=== PATIENT | female | born 1995 | race Caucasian/White ===

== ENCOUNTER 2017-12-11 02:33 | Observation (INO) | payer OTHER ==
[~2017-12-11] VITALS: Ht 170.2 cm; Wt 79.4 kg
[~2017-12-11 02:33] MED LIST: ALBU90OI INH; ALBU90OI6 INH; BENZ100A PO; Bactrim Ds Tab1 EACH PO; CEPH500 PO; CIPR500 PO; Cipro250 MG PO; HYDACE5 PO; IBUP600 PO; IBUP800 PO; LEVFLO500 PO; MIRT15 PO; Monodox100 MG PO; PALI3TAB PO; PROM6.25SY PO; RISP4 PO; SULTRIDS PO; TRAM50 PO; VORTIOXETINE; Zofran Odt4 MG PO
[2017-12-11 02:55] LABS: BASOPHILS ABSOLUTE AUTO 0.03 K/mm3 (0.00-0.23); BASOPHILS PERCENT AUTO 0 % (0-2); EOSINOPHILS ABSOLUTE AUTO 0.05 K/mm3 (0.00-0.68); EOSINOPHILS PERCENT AUTO 0 % (0-6); Hematocrit 44.7 % (33.0-51.0); IMMATURE GRAN ABSOLUTE AUTO 0.04 K/mm3 (0.00-0.10); IMMATURE GRAN PERCENT AUTO 0 % (0-1); LYMPHOCYTES ABSOLUTE AUTO 3.63 K/mm3 (0.84-5.20); LYMPHOCYTES PERCENT AUTO 29 % (21-46); MONOCYTES ABSOLUTE AUTO 1.11 K/mm3 (0.16-1.47); MONOCYTES PERCENT AUTO 9 % (4-13); Mean Corpuscular HGB 30.5 pg (26.0-34.0); Mean Corpuscular HGB Conc 33.6 g/dL (31.5-36.5); Mean Corpuscular Volume 91 fL (80-100); NEUTROPHILS ABSOLUTE AUTO 7.82 K/mm3 (1.96-9.15); NEUTROPHILS PERCENT AUTO 62 % (41-73); Platelet Count 373 K/mm3 (150-400); RDW Coefficient Variation 12.6 % (11.7-14.2); RDW Standard Deviation 42.3 fL (35.1-46.3); Red Blood Cell Count 4.91 M/mm3 (3.80-5.20); White Blood Cell Count 12.68 K/mm3 (4.00-11.30)
[2017-12-11 03:14] LABS: Source, Urine Clean Catch
[2017-12-11 03:16] LABS: Bilirubin, Urine Neg (Neg); Blood, Urine Neg (Neg); Glucose Qualitative, Urine Neg (Neg); Ketones, Urine 2+ (Neg); Leukocyte Esterase, Urine 1+ (Neg); Nitrite, Urine Neg (Neg); Protein, Urine 1+ (Neg); Urobilinogen, Urine 1+ (Normal)
[2017-12-11 03:17] LABS: Appearance, Urine Clear (Clear); Color, Urine Yellow (P-Yellow)
[2017-12-11 03:18] LABS: Ethanol (Alcohol), Blood, Med <3 mg/dL
[2017-12-11 03:21] LABS: Acetaminophen, Random <2.0 ug/mL (10.0-30.0); Alanine Aminotransfer (ALT/SGP 20 U/L (12-78); Albumin, Blood 4.3 g/dL (3.4-5.0); Albumin/Globulin Ratio 0.9 (0.8-1.8); Alk Phos 86 U/L (50-136); Anion Gap 12 mmol/L (6-16); Aspartate Aminotrans (AST/SGOT 19 U/L (12-37); Bilirubin, Total 0.3 mg/dL (0.1-1.0); Blood Urea Nitrogen 13 mg/dL (8-24); Bun/Creatinine Ratio 18.1 (12.0-20.0); CO2, Blood 20 mmol/L (21-32); Calcium, Blood 9.4 mg/dL (8.5-10.1); Chloride, Blood 105 mmol/L (98-108); Creatinine, Blood 0.72 mg/dL (0.40-1.00); Globulin, Blood 4.9 g/dL (2.2-4.0); Glomerular Filtration Rate >60 (60-); Glucose, Blood 114 mg/dL (70-99); Potassium, Blood 4.4 mmol/L (3.5-5.5); Sodium, Blood 137 mmol/L (136-145); Total Protein, Blood 9.2 g/dL (6.4-8.2)
[2017-12-11 03:23] LABS: Bacteria Mod /hpf; Hyaline Casts 0-2 /lpf (0-2); Mucus Light (0-Heavy); Red Blood Cells, Urine 0-2 /hpf (0-2); Squamous Epithelial Cells Few /hpf (Few)
[2017-12-11 03:33] LABS: U Amphetamine Screen DETECTED; U Barbituate Screen Not Detected; U Benzodiazapine Screen Not Detected; U Buprenorphine Screen Not Detected; U Cannabinoids Screen DETECTED; U Cocaine Screen Not Detected; U Methadone Screen Not Detected; U Methamphetamine Screen DETECTED; U Opiates Screen Not Detected; U Oxycodone Screen Not Detected; U Phencyclidine Screen Not Detected; U Propoxyphene Screen Not Detected
== END 2017-12-11 13:52 | disposition home or self-care (01) ==
LOC: ER 02:33 → EOR 02:35
PROVIDERS: Emergency Medicine
DX: F15.959 Other stimulant use, unspecified with stimulant-induced psychotic disorder, unspecified (principal); I10 Essential (primary) hypertension; F20.9 Schizophrenia, unspecified; F31.9 Bipolar disorder, unspecified; F90.9 Attention-deficit hyperactivity disorder, unspecified type; F43.10 Post-traumatic stress disorder, unspecified; F17.210 Nicotine dependence, cigarettes, uncomplicated; Z88.8 Allergy status to other drugs, medicaments and biological substances; Z98.890 Other specified postprocedural states
CPT/HCPCS: 36415; 80053; 81001; 81025; 84443; 85025; 87086; 96374; 96375; 99285; G0378; G0480; J1630; J2060; P9612

== ENCOUNTER 2017-12-23 04:12 | Observation (INO) | payer OTHER ==
[~2017-12-23] VITALS: Ht 165.1 cm; Wt 74.8 kg
[2017-12-23 04:40] LABS: BASOPHILS ABSOLUTE AUTO 0.02 K/mm3 (0.00-0.23); BASOPHILS PERCENT AUTO 0 % (0-2); EOSINOPHILS ABSOLUTE AUTO 0.05 K/mm3 (0.00-0.68); EOSINOPHILS PERCENT AUTO 1 % (0-6); Hematocrit 42.2 % (33.0-51.0); Hemoglobin 14.2 g/dL (11.5-16.0); IMMATURE GRAN ABSOLUTE AUTO 0.02 K/mm3 (0.00-0.10); IMMATURE GRAN PERCENT AUTO 0 % (0-1); LYMPHOCYTES ABSOLUTE AUTO 2.39 K/mm3 (0.84-5.20); LYMPHOCYTES PERCENT AUTO 28 % (21-46); MONOCYTES ABSOLUTE AUTO 0.58 K/mm3 (0.16-1.47); MONOCYTES PERCENT AUTO 7 % (4-13); Mean Corpuscular HGB 30.5 pg (26.0-34.0); Mean Corpuscular HGB Conc 33.6 g/dL (31.5-36.5); Mean Corpuscular Volume 91 fL (80-100); Mean Platelet Volume 8.8 fL (9.1-12.4); NEUTROPHILS ABSOLUTE AUTO 5.38 K/mm3 (1.96-9.15); NEUTROPHILS PERCENT AUTO 64 % (41-73); Platelet Count 377 K/mm3 (150-400); RDW Coefficient Variation 12.6 % (11.7-14.2); RDW Standard Deviation 41.5 fL (35.1-46.3); Red Blood Cell Count 4.65 M/mm3 (3.80-5.20); White Blood Cell Count 8.44 K/mm3 (4.00-11.30)
[2017-12-23 05:00] LABS: Source, Urine Clean Catch
[2017-12-23 05:05] LABS: Alanine Aminotransfer (ALT/SGP 19 U/L (12-78); Albumin/Globulin Ratio 0.8 (0.8-1.8); Alk Phos 93 U/L (50-136); Anion Gap 10 mmol/L (6-16); Aspartate Aminotrans (AST/SGOT 20 U/L (12-37); Bilirubin, Total 0.5 mg/dL (0.1-1.0); Blood Urea Nitrogen 7 mg/dL (8-24); Bun/Creatinine Ratio 11.2 (12.0-20.0); CO2, Blood 23 mmol/L (21-32); Calcium, Blood 9.1 mg/dL (8.5-10.1); Chloride, Blood 104 mmol/L (98-108); Creatinine, Blood 0.63 mg/dL (0.40-1.00); Ethanol (Alcohol), Blood, Med <3 mg/dL; Globulin, Blood 4.8 g/dL (2.2-4.0); Glomerular Filtration Rate >60 (60-); Glucose, Blood 97 mg/dL (70-99); Potassium, Blood 3.5 mmol/L (3.5-5.5); Salicylate <1.7 mg/dL (2.8-20.0); Sodium, Blood 137 mmol/L (136-145); Total Protein, Blood 8.8 g/dL (6.4-8.2)
[2017-12-23 05:13] LABS: Appearance, Urine Hazy (Clear); Bilirubin, Urine Neg (Neg); Blood, Urine 1+ (Neg); Color, Urine Yellow (P-Yellow); Glucose Qualitative, Urine Neg (Neg); Ketones, Urine 2+ (Neg); Leukocyte Esterase, Urine 3+ (Neg); Nitrite, Urine Neg (Neg); Protein, Urine Neg (Neg); Specific Gravity, Urine 1.015 (1.003-1.022); Urobilinogen, Urine NORM (Normal); pH, Urine 6.5 (5.0-8.0)
[2017-12-23 05:15] LABS: Acetaminophen, Random <2.0 ug/mL (10.0-30.0)
[2017-12-23 05:15] LABS: Bacteria Rare /hpf; Red Blood Cells, Urine 0-2 /hpf (0-2); Squamous Epithelial Cells Mod /hpf (Few)
[2017-12-23 05:20] LABS: U Amphetamine Screen DETECTED; U Barbituate Screen Not Detected; U Benzodiazapine Screen Not Detected; U Buprenorphine Screen Not Detected; U Cannabinoids Screen DETECTED; U Cocaine Screen Not Detected; U Methadone Screen Not Detected; U Methamphetamine Screen DETECTED; U Opiates Screen Not Detected; U Oxycodone Screen Not Detected; U Phencyclidine Screen Not Detected; U Propoxyphene Screen Not Detected
== END 2017-12-26 13:15 | disposition home or self-care (01) ==
LOC: ER 04:12 → EOR 04:13
PROVIDERS: Emergency Medicine
DX: F15.129 Other stimulant abuse with intoxication, unspecified (principal); R45.851 Suicidal ideations; R45.850 Homicidal ideations; F19.11 Other psychoactive substance abuse, in remission; F31.9 Bipolar disorder, unspecified; F11.10 Opioid abuse, uncomplicated; I10 Essential (primary) hypertension; F43.10 Post-traumatic stress disorder, unspecified; F20.9 Schizophrenia, unspecified; F90.9 Attention-deficit hyperactivity disorder, unspecified type; F17.210 Nicotine dependence, cigarettes, uncomplicated; Z88.8 Allergy status to other drugs, medicaments and biological substances; Z98.890 Other specified postprocedural states
CPT/HCPCS: 51701; 80053; 81001; 81025; 84443; 85025; 87086; 96372; 99285; G0378; G0480; J1630; J2060; Q3014

== ENCOUNTER → 2018-01-24 | Outpatient (CLI) | payer OTHER ==
[2018-01-24 15:25] LABS: U Amphetamine Screen DETECTED; U Barbituate Screen Not Detected; U Benzodiazapine Screen Not Detected; U Cocaine Screen Not Detected; U Methamphetamine Screen DETECTED
[2018-01-24 15:26] LABS: U Buprenorphine Screen Not Detected; U Cannabinoids Screen Not Detected; U Methadone Screen Not Detected; U Opiates Screen Not Detected; U Oxycodone Screen Not Detected; U Phencyclidine Screen Not Detected; U Propoxyphene Screen Not Detected
== END ==
LOC: LAB SHORT 13:30 → LAB 13:30
PROVIDERS: Registered Nurse
DX: Z51.81 Encounter for therapeutic drug level monitoring (principal); Z79.899 Other long term (current) drug therapy

== ENCOUNTER 2018-02-02 04:50 | Emergency (ER) | payer OTHER | END 2018-02-02 05:02 | disposition left against medical advice (07) | LOC: ER 04:50 | DX: Z53.21 Procedure and treatment not carried out due to patient leaving prior to being seen by health care provider (principal) ==

== ENCOUNTER 2018-04-17 18:14 | Emergency (ER) | payer OTHER ==
[~2018-04-17] VITALS: Ht 170.2 cm; Wt 79.4 kg
[2018-04-17] MEDS ORDERED: RISP4 PO (19:41)
== END 2018-04-17 19:55 | disposition home or self-care (01) ==
LOC: ER 18:14
DX: Z76.0 Encounter for issue of repeat prescription (principal); Z88.8 Allergy status to other drugs, medicaments and biological substances; Z79.899 Other long term (current) drug therapy; F20.9 Schizophrenia, unspecified; F31.9 Bipolar disorder, unspecified; F90.9 Attention-deficit hyperactivity disorder, unspecified type; I10 Essential (primary) hypertension; F17.210 Nicotine dependence, cigarettes, uncomplicated
CPT/HCPCS: 99281

== ENCOUNTER 2018-05-08 01:56 | Observation (INO) | payer OTHER ==
[~2018-05-08] VITALS: Ht 170.2 cm; Wt 90.7 kg
== END 2018-05-09 08:55 | disposition home or self-care (01) ==
LOC: ER 01:56 → EOR 01:57
DX: F19.10 Other psychoactive substance abuse, uncomplicated (principal); F41.9 Anxiety disorder, unspecified; F20.9 Schizophrenia, unspecified; F31.9 Bipolar disorder, unspecified; F90.9 Attention-deficit hyperactivity disorder, unspecified type; I10 Essential (primary) hypertension; F43.10 Post-traumatic stress disorder, unspecified; Z88.8 Allergy status to other drugs, medicaments and biological substances; Z79.899 Other long term (current) drug therapy
CPT/HCPCS: 99285; G0378

== ENCOUNTER 2018-05-13 18:26 | Observation (INO) | payer OTHER ==
[~2018-05-13] VITALS: Ht 167.6 cm; Wt 86.2 kg
[2018-05-13 19:30] LABS: BASOPHILS ABSOLUTE AUTO 0.03 K/mm3 (0.00-0.23); BASOPHILS PERCENT AUTO 0 % (0-2); EOSINOPHILS ABSOLUTE AUTO 0.05 K/mm3 (0.00-0.68); EOSINOPHILS PERCENT AUTO 0 % (0-6); Hematocrit 38.2 % (33.0-51.0); Hemoglobin 12.7 g/dL (11.5-16.0); IMMATURE GRAN ABSOLUTE AUTO 0.05 K/mm3 (0.00-0.10); IMMATURE GRAN PERCENT AUTO 0 % (0-1); LYMPHOCYTES ABSOLUTE AUTO 2.73 K/mm3 (0.84-5.20); LYMPHOCYTES PERCENT AUTO 23 % (21-46); MONOCYTES ABSOLUTE AUTO 1.44 K/mm3 (0.16-1.47); MONOCYTES PERCENT AUTO 12 % (4-13); Mean Corpuscular HGB 30.5 pg (26.0-34.0); Mean Corpuscular HGB Conc 33.2 g/dL (31.5-36.5); Mean Corpuscular Volume 92 fL (80-100); NEUTROPHILS PERCENT AUTO 64 % (41-73); Platelet Count 399 K/mm3 (150-400); RDW Coefficient Variation 14.6 % (11.7-14.2); RDW Standard Deviation 49.5 fL (35.1-46.3); Red Blood Cell Count 4.17 M/mm3 (3.80-5.20)
[2018-05-13 19:54] LABS: Ethanol (Alcohol), Blood, Med <3 mg/dL; Salicylate 2.5 mg/dL (2.8-20.0)
[2018-05-13 19:59] LABS: Alanine Aminotransfer (ALT/SGP 69 U/L (12-78); Albumin, Blood 4.3 g/dL (3.4-5.0); Alk Phos 95 U/L (50-136); Anion Gap 16 mmol/L (6-16); Aspartate Aminotrans (AST/SGOT 50 U/L (12-37); Bilirubin, Total 0.7 mg/dL (0.1-1.0); Blood Urea Nitrogen 18 mg/dL (8-24); Bun/Creatinine Ratio 22.7 (12.0-20.0); CO2, Blood 20 mmol/L (21-32); Calcium, Blood 8.9 mg/dL (8.5-10.1); Chloride, Blood 102 mmol/L (98-108); Creatinine, Blood 0.79 mg/dL (0.40-1.00); Globulin, Blood 4.3 g/dL (2.2-4.0); Glomerular Filtration Rate >60 (60-); Glucose, Blood 105 mg/dL (70-99); Potassium, Blood 3.1 mmol/L (3.5-5.5); Sodium, Blood 138 mmol/L (136-145); Total Protein, Blood 8.6 g/dL (6.4-8.2)
[2018-05-13 20:03] LABS: Acetaminophen, Random <2.0 ug/mL (10.0-30.0)
[2018-05-14 04:21] LABS: Source, Urine Clean Catch
[2018-05-14 04:23] LABS: Appearance, Urine Cloudy (Clear); Bilirubin, Urine Neg (Neg); Blood, Urine 1+ (Neg); Color, Urine Amber (P-Yellow); Glucose Qualitative, Urine Neg (Neg); Ketones, Urine 1+ (Neg); Leukocyte Esterase, Urine 2+ (Neg); Nitrite, Urine Neg (Neg); Protein, Urine 1+ (Neg); Specific Gravity, Urine 1.025 (1.003-1.022); Urobilinogen, Urine NORM (Normal)
[2018-05-14 04:32] LABS: Amorphous Light (0-Heavy); Bacteria Many /hpf; Mucus Light (0-Heavy); Red Blood Cells, Urine 0-2 /hpf (0-2); Squamous Epithelial Cells Many /hpf (Few)
[2018-05-14 04:33] LABS: U Amphetamine Screen DETECTED; U Barbituate Screen Not Detected; U Benzodiazapine Screen Not Detected; U Buprenorphine Screen Not Detected; U Cannabinoids Screen DETECTED; U Cocaine Screen Not Detected; U Methadone Screen Not Detected; U Methamphetamine Screen DETECTED; U Opiates Screen Not Detected; U Oxycodone Screen Not Detected; U Phencyclidine Screen Not Detected; U Propoxyphene Screen Not Detected
== END 2018-05-14 14:45 | disposition home or self-care (01) ==
LOC: ER 18:26 → EOR 18:27
PROVIDERS: Emergency Medicine
DX: F20.9 Schizophrenia, unspecified (principal); F19.10 Other psychoactive substance abuse, uncomplicated; F31.9 Bipolar disorder, unspecified; I10 Essential (primary) hypertension; F43.10 Post-traumatic stress disorder, unspecified; F90.9 Attention-deficit hyperactivity disorder, unspecified type; Z79.899 Other long term (current) drug therapy
CPT/HCPCS: 36415; 80053; 81001; 81025; 84439; 84443; 85025; 87086; 99285; G0378; G0480

== ENCOUNTER 2018-07-21 16:24 | Observation (INO) | payer OTHER ==
[~2018-07-21] VITALS: Ht 167.6 cm; Wt 86.2 kg
[2018-07-21 18:48] LABS: BASOPHILS ABSOLUTE AUTO 0.02 K/mm3 (0.00-0.23); BASOPHILS PERCENT AUTO 0 % (0-2); EOSINOPHILS ABSOLUTE AUTO 0.03 K/mm3 (0.00-0.68); EOSINOPHILS PERCENT AUTO 0 % (0-6); Hemoglobin 12.3 g/dL (11.5-16.0); IMMATURE GRAN ABSOLUTE AUTO 0.02 K/mm3 (0.00-0.10); IMMATURE GRAN PERCENT AUTO 0 % (0-1); LYMPHOCYTES ABSOLUTE AUTO 1.97 K/mm3 (0.84-5.20); LYMPHOCYTES PERCENT AUTO 25 % (21-46); MONOCYTES ABSOLUTE AUTO 0.73 K/mm3 (0.16-1.47); MONOCYTES PERCENT AUTO 9 % (4-13); Mean Corpuscular HGB 30.4 pg (26.0-34.0); Mean Corpuscular HGB Conc 32.4 g/dL (31.5-36.5); Mean Corpuscular Volume 94 fL (80-100); Mean Platelet Volume 9.3 fL (9.1-12.4); NEUTROPHILS ABSOLUTE AUTO 5.17 K/mm3 (1.96-9.15); NEUTROPHILS PERCENT AUTO 65 % (41-73); Platelet Count 316 K/mm3 (150-400); RDW Coefficient Variation 13.1 % (11.7-14.2); RDW Standard Deviation 45.1 fL (35.1-46.3); Red Blood Cell Count 4.04 M/mm3 (3.80-5.20); White Blood Cell Count 7.94 K/mm3 (4.00-11.30)
[2018-07-21 19:10] LABS: Alanine Aminotransfer (ALT/SGP 20 U/L (12-78); Albumin, Blood 3.7 g/dL (3.4-5.0); Alk Phos 81 U/L (50-136); Anion Gap 9 mmol/L (6-16); Aspartate Aminotrans (AST/SGOT 21 U/L (12-37); Bilirubin, Total 0.4 mg/dL (0.1-1.0); Blood Urea Nitrogen 11 mg/dL (8-24); Bun/Creatinine Ratio 14.5 (12.0-20.0); CO2, Blood 21 mmol/L (21-32); Calcium, Blood 8.6 mg/dL (8.5-10.1); Chloride, Blood 113 mmol/L (98-108); Creatinine, Blood 0.76 mg/dL (0.40-1.00); Ethanol (Alcohol), Blood, Med <3 mg/dL; Globulin, Blood 3.8 g/dL (2.2-4.0); Glomerular Filtration Rate >60 (60-); Glucose, Blood 81 mg/dL (70-99); Potassium, Blood 3.5 mmol/L (3.5-5.5); Salicylate <1.7 mg/dL (2.8-20.0); Sodium, Blood 143 mmol/L (136-145); Total Protein, Blood 7.5 g/dL (6.4-8.2)
[2018-07-21 19:18] LABS: Acetaminophen, Random <2.0 ug/mL (10.0-30.0)
== END 2018-07-24 10:30 | disposition home or self-care (01) ==
LOC: ER 16:24 → EOR 16:25
PROVIDERS: Emergency Medicine
DX: R45.851 Suicidal ideations (principal); F20.9 Schizophrenia, unspecified; F31.9 Bipolar disorder, unspecified; F90.9 Attention-deficit hyperactivity disorder, unspecified type; F17.210 Nicotine dependence, cigarettes, uncomplicated; Z88.8 Allergy status to other drugs, medicaments and biological substances; Z79.899 Other long term (current) drug therapy
CPT/HCPCS: 80053; 84443; 85025; 96372; 99285; G0378; G0480; J0515; J1630; J2060; Q3014

== ENCOUNTER 2018-11-29 16:04 | Observation (INO) | payer OTHER ==
[~2018-11-29] VITALS: Ht 167.6 cm; Wt 68.0 kg
[2018-11-29 17:01] LABS: BASOPHILS ABSOLUTE AUTO 0.03 K/mm3 (0.00-0.23); BASOPHILS PERCENT AUTO 0 % (0-2); EOSINOPHILS PERCENT AUTO 0 % (0-6); Hematocrit 40.3 % (33.0-51.0); Hemoglobin 13.6 g/dL (11.5-16.0); IMMATURE GRAN ABSOLUTE AUTO 0.04 K/mm3 (0.00-0.10); IMMATURE GRAN PERCENT AUTO 0 % (0-1); LYMPHOCYTES ABSOLUTE AUTO 2.32 K/mm3 (0.84-5.20); LYMPHOCYTES PERCENT AUTO 16 % (21-46); MONOCYTES ABSOLUTE AUTO 1.42 K/mm3 (0.16-1.47); MONOCYTES PERCENT AUTO 10 % (4-13); Mean Corpuscular HGB 31.9 pg (26.0-34.0); Mean Corpuscular HGB Conc 33.7 g/dL (31.5-36.5); Mean Corpuscular Volume 94 fL (80-100); Mean Platelet Volume 9.3 fL (9.1-12.4); NEUTROPHILS ABSOLUTE AUTO 11.04 K/mm3 (1.96-9.15); NEUTROPHILS PERCENT AUTO 74 % (41-73); Platelet Count 372 K/mm3 (150-400); RDW Coefficient Variation 12.3 % (11.7-14.2); RDW Standard Deviation 43.1 fL (35.1-46.3); Red Blood Cell Count 4.27 M/mm3 (3.80-5.20); White Blood Cell Count 14.85 K/mm3 (4.00-11.30)
[2018-11-29 17:25] LABS: Alanine Aminotransfer (ALT/SGP 37 U/L (12-78); Albumin, Blood 4.3 g/dL (3.4-5.0); Alk Phos 88 U/L (50-136); Anion Gap 10 mmol/L (6-16); Aspartate Aminotrans (AST/SGOT 36 U/L (12-37); Bilirubin, Total 0.7 mg/dL (0.1-1.0); Blood Urea Nitrogen 21 mg/dL (8-24); Bun/Creatinine Ratio 24.8 (12.0-20.0); CO2, Blood 22 mmol/L (21-32); Calcium, Blood 8.8 mg/dL (8.5-10.1); Chloride, Blood 106 mmol/L (98-108); Creatinine, Blood 0.85 mg/dL (0.40-1.00); Globulin, Blood 4.1 g/dL (2.2-4.0); Glomerular Filtration Rate >60 (60-); Glucose, Blood 93 mg/dL (70-99); Potassium, Blood 3.6 mmol/L (3.5-5.5); Salicylate <1.7 mg/dL (2.8-20.0); Sodium, Blood 138 mmol/L (136-145); Total Protein, Blood 8.4 g/dL (6.4-8.2)
[2018-11-29 17:31] LABS: Acetaminophen, Random <2.0 ug/mL (10.0-30.0); Ethanol (Alcohol), Blood, Med <3 mg/dL
[2018-11-29 21:39] LABS: Source, Urine Clean Catch
[2018-11-29 21:46] LABS: Bilirubin, Urine Neg (Neg); Blood, Urine 1+ (Neg); Glucose Qualitative, Urine Neg (Neg); Ketones, Urine 4+ (Neg); Leukocyte Esterase, Urine 3+ (Neg); Nitrite, Urine Neg (Neg); Protein, Urine 2+ (Neg); Specific Gravity, Urine 1.025 (1.003-1.022); Urobilinogen, Urine 1+ (Normal)
[2018-11-29 21:47] LABS: Appearance, Urine Hazy (Clear); Color, Urine Amber (P-Yellow)
[2018-11-29 22:00] LABS: U Amphetamine Screen DETECTED; U Barbituate Screen Not Detected; U Benzodiazapine Screen Not Detected; U Buprenorphine Screen Not Detected; U Cannabinoids Screen DETECTED; U Cocaine Screen Not Detected; U Methadone Screen Not Detected; U Methamphetamine Screen DETECTED; U Opiates Screen Not Detected; U Oxycodone Screen Not Detected; U Phencyclidine Screen Not Detected; U Propoxyphene Screen Not Detected
[2018-11-29 22:01] LABS: Amorphous Light (0-Heavy); Bacteria Many /hpf; Mucus Heavy (0-Heavy); Red Blood Cells, Urine 0-2 /hpf (0-2); Squamous Epithelial Cells Many /hpf (Few); White Blood Cells, Urine 25-50 /hpf (0-5)
== END 2018-11-29 22:34 | disposition home or self-care (01) ==
LOC: ER 16:04 → EOR 16:05
PROVIDERS: Physician Assistant; ADMIT Emergency Medicine
DX: R45.851 Suicidal ideations (principal); F15.129 Other stimulant abuse with intoxication, unspecified; F12.929 Cannabis use, unspecified with intoxication, unspecified; F20.9 Schizophrenia, unspecified; F31.9 Bipolar disorder, unspecified; F90.9 Attention-deficit hyperactivity disorder, unspecified type; F17.200 Nicotine dependence, unspecified, uncomplicated; Z88.8 Allergy status to other drugs, medicaments and biological substances; Z79.899 Other long term (current) drug therapy
CPT/HCPCS: 80053; 81001; 81025; 84436; 84443; 85025; 87086; 99285; G0378; G0480

== ENCOUNTER 2019-01-17 14:38 | Emergency (ER) | payer SELFPAY ==
[~2019-01-17] VITALS: Ht 170.2 cm; Wt 90.7 kg
[2019-01-17 15:21] LABS: BASOPHILS ABSOLUTE AUTO 0.03 K/mm3 (0.00-0.23); BASOPHILS PERCENT AUTO 0 % (0-2); EOSINOPHILS ABSOLUTE AUTO 0.03 K/mm3 (0.00-0.68); EOSINOPHILS PERCENT AUTO 0 % (0-6); Hematocrit 35.7 % (33.0-51.0); Hemoglobin 11.9 g/dL (11.5-16.0); IMMATURE GRAN ABSOLUTE AUTO 0.03 K/mm3 (0.00-0.10); IMMATURE GRAN PERCENT AUTO 0 % (0-1); LYMPHOCYTES ABSOLUTE AUTO 2.69 K/mm3 (0.84-5.20); LYMPHOCYTES PERCENT AUTO 25 % (21-46); MONOCYTES ABSOLUTE AUTO 1.17 K/mm3 (0.16-1.47); MONOCYTES PERCENT AUTO 11 % (4-13); Mean Corpuscular HGB 30.9 pg (26.0-34.0); Mean Corpuscular HGB Conc 33.3 g/dL (31.5-36.5); Mean Corpuscular Volume 93 fL (80-100); Mean Platelet Volume 9.2 fL (9.1-12.4); NEUTROPHILS ABSOLUTE AUTO 6.96 K/mm3 (1.96-9.15); NEUTROPHILS PERCENT AUTO 64 % (41-73); Platelet Count 316 K/mm3 (150-400); RDW Coefficient Variation 12.7 % (11.7-14.2); RDW Standard Deviation 43.1 fL (35.1-46.3); Red Blood Cell Count 3.85 M/mm3 (3.80-5.20); White Blood Cell Count 10.91 K/mm3 (4.00-11.30)
[2019-01-17 15:56] LABS: Alanine Aminotransfer (ALT/SGP 15 U/L (12-78); Albumin/Globulin Ratio 0.6 (0.8-1.8); Alk Phos 67 U/L (50-136); Anion Gap 9 mmol/L (6-16); Aspartate Aminotrans (AST/SGOT 25 U/L (12-37); Bilirubin, Total 0.3 mg/dL (0.1-1.0); Blood Urea Nitrogen 6 mg/dL (8-24); Bun/Creatinine Ratio 10.4 (12.0-20.0); CO2, Blood 23 mmol/L (21-32); Calcium, Blood 8.4 mg/dL (8.5-10.1); Chloride, Blood 104 mmol/L (98-108); Creatinine, Blood 0.58 mg/dL (0.40-1.00); Globulin, Blood 4.7 g/dL (2.2-4.0); Glomerular Filtration Rate >60 (60-); Glucose, Blood 98 mg/dL (70-99); Potassium, Blood 3.7 mmol/L (3.5-5.5); Sodium, Blood 136 mmol/L (136-145); Total Protein, Blood 7.7 g/dL (6.4-8.2)
== END 2019-01-17 16:22 | disposition left against medical advice (07) ==
LOC: ER 14:38
PROVIDERS: Physician Assistant
DX: Z53.21 Procedure and treatment not carried out due to patient leaving prior to being seen by health care provider (principal)
CPT/HCPCS: 80053; 83690; 85025

== ENCOUNTER 2019-03-13 02:34 | Inpatient (IN) | payer MEDICARE ==
[~2019-03-13] VITALS: Ht 167.6 cm; Wt 69.3 kg
[~2019-03-13 02:34] MED LIST changes: +Naprosyn500 MG PO; +PALI6TA PO; +ROBITUSSIN COU237 ML PO
[2019-03-13 03:03] LABS: PCO2 Arterial 27.9 mmHg (35-45); PO2 Arterial 221 mmHg (80-100); pH Blood Arterial 7.53 (7.35-7.45)
[2019-03-13 03:03] LABS: Source, Urine Catheter
[2019-03-13 03:06] LABS: Bilirubin, Urine Neg (Neg); Blood, Urine Neg (Neg); Glucose Qualitative, Urine Neg (Neg); Ketones, Urine 2+ (Neg); Leukocyte Esterase, Urine 1+ (Neg); Nitrite, Urine Neg (Neg); Protein, Urine 1+ (Neg); Urobilinogen, Urine NORM (Normal)
[2019-03-13 03:06] LABS: BASOPHILS ABSOLUTE AUTO 0.03 K/mm3 (0.00-0.23); BASOPHILS PERCENT AUTO 0 % (0-2); EOSINOPHILS ABSOLUTE AUTO 0.03 K/mm3 (0.00-0.68); EOSINOPHILS PERCENT AUTO 0 % (0-6); Hematocrit 35.8 % (33.0-51.0); Hemoglobin 11.5 g/dL (11.5-16.0); IMMATURE GRAN ABSOLUTE AUTO 0.05 K/mm3 (0.00-0.10); IMMATURE GRAN PERCENT AUTO 0 % (0-1); LYMPHOCYTES ABSOLUTE AUTO 4.18 K/mm3 (0.84-5.20); LYMPHOCYTES PERCENT AUTO 26 % (21-46); MONOCYTES ABSOLUTE AUTO 1.07 K/mm3 (0.16-1.47); MONOCYTES PERCENT AUTO 7 % (4-13); Mean Corpuscular HGB 29.7 pg (26.0-34.0); Mean Corpuscular HGB Conc 32.1 g/dL (31.5-36.5); Mean Corpuscular Volume 93 fL (80-100); NEUTROPHILS ABSOLUTE AUTO 10.58 K/mm3 (1.96-9.15); NEUTROPHILS PERCENT AUTO 66 % (41-73); Platelet Count 387 K/mm3 (150-400); RDW Coefficient Variation 13.8 % (11.7-14.2); Red Blood Cell Count 3.87 M/mm3 (3.80-5.20); White Blood Cell Count 15.94 K/mm3 (4.00-11.30)
[2019-03-13 03:08] LABS: Appearance, Urine Clear (Clear); Color, Urine Yellow (P-Yellow)
[2019-03-13 03:11] LABS: Bacteria Mod /hpf; Mucus Light (0-Heavy); Red Blood Cells, Urine 0-2 /hpf (0-2); Squamous Epithelial Cells Few /hpf (Few)
[2019-03-13 03:17] LABS: U Amphetamine Screen DETECTED; U Barbituate Screen Not Detected; U Benzodiazapine Screen Not Detected; U Buprenorphine Screen Not Detected; U Cannabinoids Screen DETECTED; U Cocaine Screen Not Detected; U Methadone Screen Not Detected; U Methamphetamine Screen DETECTED; U Opiates Screen Not Detected; U Oxycodone Screen Not Detected; U Phencyclidine Screen Not Detected; U Propoxyphene Screen Not Detected
[2019-03-13 03:29] LABS: Alanine Aminotransfer (ALT/SGP 26 U/L (12-78); Albumin, Blood 3.2 g/dL (3.4-5.0); Albumin/Globulin Ratio 0.7 (0.8-1.8); Alk Phos 74 U/L (50-136); Anion Gap 11 mmol/L (6-16); Aspartate Aminotrans (AST/SGOT 31 U/L (12-37); Bilirubin, Total 0.5 mg/dL (0.1-1.0); Blood Urea Nitrogen 14 mg/dL (8-24); Bun/Creatinine Ratio 18.2 (12.0-20.0); CO2, Blood 24 mmol/L (21-32); CPK Creatine Kinase 384 U/L (26-193); Calcium, Blood 8.2 mg/dL (8.5-10.1); Chloride, Blood 104 mmol/L (98-108); Creatinine, Blood 0.77 mg/dL (0.40-1.00); Ethanol (Alcohol), Blood, Med <3 mg/dL; Globulin, Blood 4.3 g/dL (2.2-4.0); Glomerular Filtration Rate >60 (60-); Glucose, Blood 96 mg/dL (70-99); Salicylate <1.7 mg/dL (2.8-20.0); Sodium, Blood 139 mmol/L (136-145); Total Protein, Blood 7.5 g/dL (6.4-8.2)
[2019-03-13 03:38] LABS: Acetaminophen, Random <2.0 ug/mL (10.0-30.0)
[2019-03-13 03:53] LABS: Creatine Kinase MB 5.1 ng/mL (0.0-3.6); Creatine Kinase MB Index 1.3 (0.0-4.0)
--- NOTE | 2019-03-13 06:40 | NUR ---
ASSUMED PT CARE / END OF SHIFT SUMMARY ASSUMED PT CARE AT 0518. PT ARRIVED ON UNIT VIA STRETCHER FROM ED. PT INTUBATED AND SEDATED; ETT 7.5, 23CM AT THE TEETH. VENT SETTINGS: AC 14, TV 400, PEEP 5, FIO2 25% WITH OXYGEN SATURATIONS 99%. PROPOFOL AT 40MCG/KG/MIN; INCREASED TO 50MCG/KG/MIN RIGHT AWAY AND ASKED REGISTRY RN TO CALL AND ASK FOR ORDERS FOR PRECEDEX D/T PT THRASHING IN BED AND INCREASING RISK OF SELF EXTUBATION. NO FAMILY AT BEDSIDE. PT RESPONDS TO PAINFUL STIMULI AND ATTEMPTS PURPOSEFUL MOVEMENTS. PT REMAINS IN BILATERAL SOFT WRIST RESTRAINTS. NSR WITH HR 90'S. PRECEDEX STARTED AT 0.7MCG/KG/HR. LUNG SOUNDS CLEAR, BUT DIMINISHED OT BILATERAL BASES. OCCASIONAL COUGH WITH THIN, WHITE SECRETIONS SUCTIONED. OG HOOKED TO LOW INTERMITTENT SUCTION WITH MINIMAL AMOUNTS OF BILE NOTED TO CANNISTER. CARNEY CATHETER IS PATENT AND DRAINING TO GRAVITY; DARK, BETHANY COLORED URINE. PT DOESN'T APPEAR TO BE IN ANY PAIN AT THIS TIME. WILL CONTINUE TO MONITOR PT UNTIL REPORT IS HANDED OFF TO ONCOMING RN.
--- NOTE | 2019-03-13 07:30 | NUR ---
START OF SHIFT NOTE: RECEIVED REPORT FROM RADU VASQUEZ, ASSUMED CARE, PATIENT IN ON MECHANICAL VENTILATION, PROPOFOL AT 40 AND PRECEDEX AT 0.7 INFUSING AT THIS TIME, ALSO POTASSIUM IS BEING REPLACED, NS AT 200 CC/HR, VENT SETTINGS ARE: 14/5/400/FiO2 25 %, PATIENT IS SEDATED, LUNG SOUNDS CLEAR, NSR WITH HR IN 80'S, BLOOD PRESSURES UPPER 90'S TO LOW 100'S, BOWEL TONES PRESENT, PATIENT HAS CARNEY CATHETER IN PLACE, UA SENT, D/T HX OF MRSA, SWABS WERE SENT, MULTIPLE SCABS AND SCRATCHES NOTED ON LE'S AND OVER ENTIRE BODY, PATIENT IN RESTRAINTS, CALL LIGHT IN REACH, WILL CONTINUE TO MONITOR.
--- NOTE | 2019-03-13 10:45 | NUR ---
DR. NIELSEN IN TO SEE PATIENT, NO NEW ORDERS RECEIVED.
--- NOTE | 2019-03-13 12:15 | NUR ---
PATIENT ON CARNEY TEMP PROBE, TEMP SHOWS 95.5, HOWEVER, PATIENT FEELS QUITE HOT AND WHEN TEMP WAS TAKEN WITH TEMPORAL DEVICE IT SHOWED 97.5, WARM BLANKETS APPLIED, ROOM AIR INCREASED, WILL CONTINUE TO MONITOR.
--- NOTE | 2019-03-13 12:16 | NUR ---
DR. CAMPBELL IN TO SEE PATIENT, NEW ORDERS RECEIVED, CALL LIGHT IN REACH, WILL CONTINUE TO MONITOR.
--- NOTE | 2019-03-13 13:27 | NUR ---
RETURNED FROM [facility] AND WAS INFORMED BY DARIN, CHARGE NURSE, THAT PATIENT BECAME AGITATED AND STARTED KICKING, PROPOFOL WAS INCREASED TO 40, PATIENT WAS PLACED IN SLIGHT [place], CALM AT THIS POINT, TEMP INCREASED TO 96.7, DR. NIELSEN AWARE OF FLUCTUATING TEMPERATURE, CALL LIGHT IN REACH, WILL CONTINUE TO MONITOR.
--- NOTE | 2019-03-13 14:05 | NUR ---
DISCUSSED PATIENT CONIDITION WITH DR. NIELSEN, HE WILL ORDER BLOOD CULTURES AND REPEAT LABS, ALSO A LACTIC ACID, AND SPUTUM CULTURE, PATIENT IS RESTING COMFORTABLE, CALL LIGHT IN REACH, WILL CONTINUE TO MONITOR.
--- NOTE | 2019-03-13 14:44 | NUR ---
LAB IN TO DRAW ORDERED BLOOD CULTURES AND REPEAT LABS.
[2019-03-13 14:53] LABS: BASOPHILS ABSOLUTE AUTO 0.03 K/mm3 (0.00-0.23); BASOPHILS PERCENT AUTO 0 % (0-2); EOSINOPHILS ABSOLUTE AUTO 0.18 K/mm3 (0.00-0.68); EOSINOPHILS PERCENT AUTO 2 % (0-6); Hematocrit 32.2 % (33.0-51.0); Hemoglobin 10.2 g/dL (11.5-16.0); IMMATURE GRAN ABSOLUTE AUTO 0.03 K/mm3 (0.00-0.10); IMMATURE GRAN PERCENT AUTO 0 % (0-1); LYMPHOCYTES ABSOLUTE AUTO 2.92 K/mm3 (0.84-5.20); LYMPHOCYTES PERCENT AUTO 33 % (21-46); MONOCYTES ABSOLUTE AUTO 0.64 K/mm3 (0.16-1.47); MONOCYTES PERCENT AUTO 7 % (4-13); Mean Corpuscular HGB 29.7 pg (26.0-34.0); Mean Corpuscular HGB Conc 31.7 g/dL (31.5-36.5); Mean Corpuscular Volume 94 fL (80-100); Mean Platelet Volume 9.3 fL (9.1-12.4); NEUTROPHILS ABSOLUTE AUTO 4.99 K/mm3 (1.96-9.15); NEUTROPHILS PERCENT AUTO 57 % (41-73); Platelet Count 281 K/mm3 (150-400); RDW Coefficient Variation 14.1 % (11.7-14.2); RDW Standard Deviation 47.9 fL (35.1-46.3); Red Blood Cell Count 3.44 M/mm3 (3.80-5.20); White Blood Cell Count 8.79 K/mm3 (4.00-11.30)
[2019-03-13 15:11] LABS: Anion Gap 10 mmol/L (6-16); Blood Urea Nitrogen 10 mg/dL (8-24); Bun/Creatinine Ratio 15.8 (12.0-20.0); CO2, Blood 20 mmol/L (21-32); CPK Creatine Kinase 342 U/L (26-193); Calcium, Blood 7.4 mg/dL (8.5-10.1); Chloride, Blood 113 mmol/L (98-108); Creatinine, Blood 0.63 mg/dL (0.40-1.00); Glomerular Filtration Rate >60 (60-); Glucose, Blood 72 mg/dL (70-99); Sodium, Blood 143 mmol/L (136-145)
--- NOTE | 2019-03-13 17:33 | NUR ---
SHIFT SUMMARY NOTE: PATIENT CONTINUES TO BE ON MECHANICAL VENTILATION, SETTINGS ARE UNCHAGED 14/5/400/FiO2 25 %, ETT 7.[address], 23 CM AT TEETH, OG IN PLACE WELL DRAINING GREENISH CLEAR FLUID, PATIENT IS SEDATED VIA PROPOFOL WHICH IS INFUSING AT40 MCG/KG/MIN, PATIENT APPEARS ADEQUATELY SEDATED BUT WILL TRY TO PULL ON RESTRAINTS AND KICK LEGS WITH ORAL CARE, ALSO HAS PRECEDEX INFUSING AT 0.7 MCG/KG/HR FOR AGITATION, NS AT125 CC/HR, NSR WITH BLOOD PRESSURES IN UPPER 90'S, BOWEL TONES HYPOACTIVE, CARNEY CATHETER WITH TEMP PROBE IN PLACE, TEMP SHOWS 96.2 AT THIS TIME, PASSIVE WARMING WITH WARM BLANKETS, HOWEVER, PATIENT IS WARM TO THE TOUCH OVER ENTIRE BODY, INCLUDING FINGERS AND TOES, TEMP TAKEN TEMPORAL IS 2 DEGREES HIGHER THAN TEMP PROBE, PATIENT HAD ADEQUATE AMOUNT OF URINE OUTPUT, URINE WAS CLEAR AND BETHANY COLORED, SKIN SHOWS MANY SCABS ON BRUISING OVER THE ENTIRE LOWER HALF OF THE BODY, FOR DETAILS SEE SHIFT ASSESSMENT DOCUMENTATION AND NURSES NOTES, CALL LIGHT IN REACH, WILL CONTINUE TO MONITOR AND GIVE REPORT TO ONCOMING SECTION HAND.
--- NOTE | 2019-03-13 19:15 | NUR ---
ASSUMING CARE OF PT AT THIS TIME. PT REPORT RECEIVED AT BEDSIDE WITH OFFGOING NURSE, AUDRA LOVELACE. PT LAYING IN BED, INTUBATED AND SEDATED UPON ENTERING THE ROOM. VS STABLE - SEE VS FS. PT DOES NOT APPEAR TO BE IN DISTRESS AT THIS TIME. WILL REVIEW PLAN OF CARE.
--- NOTE | 2019-03-13 19:30 | NUR ---
ASSESSMENT PT RESPONDS TO PAINFUL STIMULI, DOES NOT OPEN EYES, DOES NOT FOLLOW COMMANDS, NORMAL FLEXION TO PAIN, THRASHING AROUND IN BED WITH INCREASED STIMULI, PULLING ON BILAT WRIST RESTRAINTS TOWRADS ETT WITH INCREASED STIMULI. PROPOFOL DRIP AT 40 MCG/KG/MIN - WILL TITRATE TO EFFECT. PRECEDEX DRIP AT 0.7 MCG/KG/HR - WILL TITRATE TO EFFECT. MARY SENSATION. PT [place]. NORMAL STRENGTH NOTED. NO WEAKNESS NOTED. NO S/SX OF PAIN/DISCOMFORT NOTED. LUNGS CLEAR, LOWER LOBES DIMINISHED. VENT SETTNGS: AC 14, TV 400, PEEP 5, FIO2 25%. OXY SAT >95%. RR 14. SUCTION VIA ETT: SMALL AMOUNTS OF THIN WHITE SECRETIONS. AFEBRILE. NSR. HR 60'S. BP STABLE - SEE VS FS. STRONG PULSES. WARM, PINK SKIN. HYPOACTIVE BT X4 QUADRANTS. ABD SOFT, NONTENDER (NO FACIAL GRIMACING WITH PALPATION). OG TO LIS: SMALL AMOUNTS OF BILE. F/C: DARK, YELLOW URINE NOTED. PIV X2. NS AT 125 ML/HR. CALLED MARNIE RICHARDSON AT THIS TIME TO INFROM OF POTASSIUM 3.0 COMPLETED AT 14:42.
--- NOTE | 2019-03-13 20:18 | NUR ---
MARNIE RICHARDSON CALLED MARNIE RICHARDSON AT THIS TIME. INFORMED MARNIE RICHARDSON OF POTASSIUM 3.0 COMPLETED AT 14:42. MARNIE RICHARDSON ORDERED POTASSIUM CHLORIDE 40 MEQ PT. WAITING FOR VERIFICATION OF MEDICATION FROM PHARMACY AT THIS TIME.
[2019-03-14 04:00] LABS: BASOPHILS ABSOLUTE AUTO 0.02 K/mm3 (0.00-0.23); BASOPHILS PERCENT AUTO 0 % (0-2); EOSINOPHILS ABSOLUTE AUTO 0.15 K/mm3 (0.00-0.68); EOSINOPHILS PERCENT AUTO 1 % (0-6); Hematocrit 37.5 % (33.0-51.0); Hemoglobin 11.5 g/dL (11.5-16.0); IMMATURE GRAN ABSOLUTE AUTO 0.04 K/mm3 (0.00-0.10); IMMATURE GRAN PERCENT AUTO 0 % (0-1); LYMPHOCYTES ABSOLUTE AUTO 2.37 K/mm3 (0.84-5.20); LYMPHOCYTES PERCENT AUTO 21 % (21-46); MONOCYTES ABSOLUTE AUTO 0.78 K/mm3 (0.16-1.47); MONOCYTES PERCENT AUTO 7 % (4-13); Mean Corpuscular HGB 29.4 pg (26.0-34.0); Mean Corpuscular HGB Conc 30.7 g/dL (31.5-36.5); Mean Corpuscular Volume 96 fL (80-100); Mean Platelet Volume 9.4 fL (9.1-12.4); NEUTROPHILS ABSOLUTE AUTO 8.14 K/mm3 (1.96-9.15); NEUTROPHILS PERCENT AUTO 71 % (41-73); Platelet Count 289 K/mm3 (150-400); RDW Coefficient Variation 14.4 % (11.7-14.2); RDW Standard Deviation 50.2 fL (35.1-46.3); Red Blood Cell Count 3.91 M/mm3 (3.80-5.20)
[2019-03-14 04:18] LABS: Anion Gap 10 mmol/L (6-16); Blood Urea Nitrogen 12 mg/dL (8-24); Bun/Creatinine Ratio 16.5 (12.0-20.0); CO2, Blood 18 mmol/L (21-32); Calcium, Blood 7.6 mg/dL (8.5-10.1); Chloride, Blood 114 mmol/L (98-108); Creatinine, Blood 0.73 mg/dL (0.40-1.00); Glomerular Filtration Rate >60 (60-); Glucose, Blood 58 mg/dL (70-99); Magnesium, Blood 2.2 mg/dL (1.6-2.4); Phosphorus, Blood 3.6 mg/dL (2.5-4.9); Potassium, Blood 3.7 mmol/L (3.5-5.5); Sodium, Blood 142 mmol/L (136-145)
--- NOTE | 2019-03-14 04:39 | NUR ---
SHIFT ASSESSMENT NO ACUTE CHANGES NOTED T/O SHIFT. PT RESPONDS TO VERBAL AND PAINFUL STIMULI, OPENED EYES SPONT WITH STIMULI AND DECREASED SEDATION, DOES NOT FOLLOW COMMANDS, DOES NOT NOD HEAD Y/N TO QUESTIONS, NORMAL FLEXION TO PAIN, LOCALIZES PAIN. PT AGITATED, THRASHING AROUND IN BED, SITTING UP IN BED, AND PULLING ON BILAT WRIST RESTRAINTS TOWARDS ETT WITH INCREASED STIMULI AND DECREASED SEDATION. UNABLE TO COMPLETE SEDATION VACATION AND SBT D/T AGITATION. PROPOFOL DRIP CURRENTLY AT 50 MCG/KG/MIN - CONT TO TITRATE TO EFFECT. PRECEDEX DRIP AT 0.7 MCG/KG/HR - CONT TO TITRATE TO EFFECT. MARY SENSATION. PT [place]. NORMAL STRENGTH NOTED. NO WEAKNESS NOTED. NO S/SX OF PAIN/DISCOMFORT NOTED. LUNGS CLEAR, LOWER LOBES DIMINISHED. VENT SETTINGS: AC 14, TV 400, PEEP 5, FIO2 25%. OXY SAT >95%. RR 14 TO 20'S. SUCTION VIA ETT: SMALL AMOUNTS OF THIN WHITE SECRETIONS TO SMALL AMOUNTS OF THIN YELLOW SECRETIONS. AFEBRILE. NSR. HR 60'S TO 70'S. BP STABLE - SEE VS FS. STRONG PULSES. WARM, PINK SKIN. HYPOACTIVE BT X4 QUADRANTS. ABD SOFT, NONTENDER (NO FACIAL GRIMACING WITH PALPATION). OG TO LIS: BILE COLORED SECRETIONS NOTED. F/C: DARK, YELLOW URINE NOTED. PIV X2. NS AT 125 ML/HR. WILL CONT TO MONITOR PT AND WILL PROVIDE BEDSIDE REPORT TO ONCOMING NURSE THIS AM.
[2019-03-14 05:00] LABS: PO2 Arterial 110 mmHg (80-100); pH Blood Arterial 7.32 (7.35-7.45)
--- NOTE | 2019-03-14 05:05 | NUR ---
DR. GIOVANNA HEREDIA IN ICU AT THIS TIME. INFORMED DR. HEREDIA OF AM GLUCOSE [address] HEREDIA ORDERED 1/2 AMP DEXROSE 50%. WAITING FOR VERIFICATION OF MEDICATION FROM PHARMACY AT THIS TIME.
--- NOTE | 2019-03-14 09:00 | NUR ---
CARE ASSUMED PT INTUBATED AND SEDAATED. VENT AC 14, TV 400, PEEP 5, FIO2 25%. LUNG SOUNDS COARSE THROUGHOUT WITH FAINT WHEEZES IN UPPER CASTILLO. BUE RESTRAINED TO PROTECT ETT AND LINES. PROPOFOL GTT INFUSING AT 50 MCG/KG/MIN. PRECEDEX GTT INFUSING AT 0.7-1.0; TITRATING NEEDED. WITH SEDATION ON, PT BECOMES EASILY AGITATED PULLING AGAINST RESTRAINTS, SITTING STRAIGHT UP IN BED, AND TURNING HEAD SIDE TO SIDE AGGRESSIVELY. NO S/S PAIN AT THIS TIME. AFEBRILE. NSR, HR 60-80S. BP STABLE. BLOOD GLUCOSE 72; MD HERNANDEZ AWARE AND MIV CHANGED FROM NS TO D5 NS AT 75 ML/HR. WILL CONTINUE TO MONITOR GLUCOSE. GEODON 20 MG IM GIVEN PER ORDER. WILL CONTINUE TO MONITOR.
--- NOTE | 2019-03-14 12:56 | NUR ---
REASSESSMENT PT REMAINS INTUBATED AND SEDATED. VENT AC 14, 400, P 5, FIO2 25%. LUNG COARSENESS HAS IMPROVED SINCE PRIOR ASSESSMENT. NO S/S PAIN. PT BECOMES VERY AGITATED WITH ANY STIMULI, AND PULLS AGAINST RESTRAINTS, THRASHES HER HEAD BACK AND FORTH, AND ATTEMPTS TO SIT UP IN BED. REMAINS IN BUE RESTRAINTS. HAS HAD MODERATE AMOUNT OF BLOODY SECRETIONS FROM MOUTH BUT THRASHES HEAD DURING SUCTION ATTEMPTS. MD HERNANDEZ AWARE OF CONTINUAL AGITATION. V.O. TO GIVE ANOTHER 20MG IM GEODON TO PT AND CONTINUE WITH SEDATION ON VENT AC. DISCONTINUED PLAN FOR EXTUBATION AT THIS TIME PER MD. WILL CONTINUE TO MONITOR.
--- NOTE | 2019-03-14 16:42 | NUR ---
REASSESSMENT PT REMAINS INTUBATED AND SEDATED. VENT AC 14, 400, PEEP 5, FIO2 25%. PROPOFOL GTT REMAINS AT 50 MCG/KG AND PRECEDEX GTT AT 1.0. BUE REMAIN RESTRAINED. PT CONTINUES TO BE AGITATED WITH ANY STIMULI. NO S/S PAIN AT THIS TIME. ROCEPHIN IV INFUSION GIVEN. TEMP 100.8; TYENOL 650 MG GIVEN PER TUBE. PT TURNED AND HOB ELEVATED. WILL CONTINUE TO MONITOR.
--- NOTE | 2019-03-14 17:52 | NUR ---
SHIFT SUMMARY PT REMAINED INTUBATED AND SEDATED ENTIRE SHIFT. PT WAS QUITE AGITATED WITH ANY STIMULI AND WAS AT RISK FOR SELF EXTUBATION. DECISION BY MD HERNANDEZ TO WAIT ON EXTUBATION AT THIS TIME. PRECEDEX GTT INFUSING AT 0.7-1.0 AND PROPOFOL GTT AT 50 MCG. HAS REMAINED IN BUE RESTRAINTS ENTIRE SHIFT. COARSE LUNG SOUNDS THROUGHOUT DAY WITH YELLOW AND PAULA SPUTUM. MIV CHANGED TO D5 LR AT 75 ML/HR. PT TURNED SELF IN BED BUT ASSISTED WITH TURNS Q2H AND HOB ELEVATED. WILL GIVE BEDSIDE, HANDOFF REPORT TO FRANCOIS RN.
--- NOTE | 2019-03-14 19:15 | NUR ---
ASSUMPTION OF CARE: Pt is intubated and sedated, responds to painful stimuli. Vent set to AC 14/400/5/25%, O2 98-100%, VSS. Increased agitation with suctioning and repositioning, pt pulls at restraints. Peripheral IV x2 patent and intact, infusing precedex, propofol, and D5LR (See flowsheet). Elder catheter intact and draining clear yellow/green urine. OG tube clamped due to day shift medication administration, will return to low intermittent suctioning.
[2019-03-15 04:45] LABS: BASOPHILS ABSOLUTE AUTO 0.02 K/mm3 (0.00-0.23); BASOPHILS PERCENT AUTO 0 % (0-2); EOSINOPHILS ABSOLUTE AUTO 0.25 K/mm3 (0.00-0.68); EOSINOPHILS PERCENT AUTO 2 % (0-6); Hematocrit 35.9 % (33.0-51.0); Hemoglobin 11.2 g/dL (11.5-16.0); IMMATURE GRAN ABSOLUTE AUTO 0.04 K/mm3 (0.00-0.10); IMMATURE GRAN PERCENT AUTO 0 % (0-1); LYMPHOCYTES ABSOLUTE AUTO 2.21 K/mm3 (0.84-5.20); LYMPHOCYTES PERCENT AUTO 21 % (21-46); MONOCYTES ABSOLUTE AUTO 0.94 K/mm3 (0.16-1.47); MONOCYTES PERCENT AUTO 9 % (4-13); Mean Corpuscular HGB 29.9 pg (26.0-34.0); Mean Corpuscular HGB Conc 31.2 g/dL (31.5-36.5); Mean Corpuscular Volume 96 fL (80-100); Mean Platelet Volume 9.7 fL (9.1-12.4); NEUTROPHILS ABSOLUTE AUTO 6.89 K/mm3 (1.96-9.15); NEUTROPHILS PERCENT AUTO 67 % (41-73); Platelet Count 304 K/mm3 (150-400); RDW Coefficient Variation 14.5 % (11.7-14.2); RDW Standard Deviation 50.8 fL (35.1-46.3); Red Blood Cell Count 3.74 M/mm3 (3.80-5.20); White Blood Cell Count 10.35 K/mm3 (4.00-11.30)
[2019-03-15 04:59] LABS: Albumin, Blood 2.1 g/dL (3.4-5.0); Anion Gap 7 mmol/L (6-16); Blood Urea Nitrogen 5 mg/dL (8-24); Bun/Creatinine Ratio 9.4 (12.0-20.0); CO2, Blood 23 mmol/L (21-32); Calcium, Blood 7.6 mg/dL (8.5-10.1); Chloride, Blood 116 mmol/L (98-108); Creatinine, Blood 0.53 mg/dL (0.40-1.00); Glomerular Filtration Rate >60 (60-); Glucose, Blood 116 mg/dL (70-99); Phosphorus, Blood 3.6 mg/dL (2.5-4.9); Sodium, Blood 146 mmol/L (136-145)
--- NOTE | 2019-03-15 06:37 | NUR ---
SHIFT SUMMARY: Pt remains intubated and sedated, responds to painful stimuli, restless and agitated at times with care. Appeared more sedated towards end of shift, sedation meds decreased (See flowsheet). VSS, no changes to vent settings throughout shift. Peripheral IV x2 patent and intact. Elder catheter present draining cloudy green tinged urine. Call placed @ approx [address] Thomason regarding potassium of 3.0, received order for 40 MEQ potassium IV x 1.
--- NOTE | 2019-03-15 08:00 | NUR ---
INITIAL ASSESSMENT PT VENTILATED AND ON SEDATION. PT AFEBRILE. PT SHOWS SOME AGITATION WITH NURSING CARE. PT HAS GROSS MOVEMENT OF EXTREMITIES. SATTING 90% OR GREATER ON VENT SETTINGS: A/C 14, TV 400, PEEP 5, 25% FIO2. NSR. HR 60S-80S. BP STABLE. OG IN PLACE; CLAMPED FOR MEDS. TYMPANIC BS HEARD T/O. CARNEY TEMP PROBE IN PLACE, DRAINING GREEN/YELLOW, CLOUDY URINE. PT SCABS/SCRAPES/BRUISES T/O LOWER BODY. D5W LR 75 ML/HR. PROPOFOL 50 MCG/KG/MIN. PRECEDEX 0.5 MCG/KG/HR. NO SIGNS OF PAIN NOTED AT THIS TIME. BED LOW, CALL LIGHT IN REACH. WILL CONTINUE TO MONITOR.
--- NOTE | 2019-03-15 12:45 | NUR ---
PT AFEBRILE. NO SIGNS OF PAIN OR DISCOMFORT AT THIS TIME. PROPOFOL INFUSING AT 40 MCG/KG/MIN. SEDIMENT NOTED IN URINE. NO OTHER ACUTE CHANGES TO NOTE ON AT THIS TIME. BED LOW, CALL LIGHT IN REACH. WILL CONTINUE TO MONITOR.
--- NOTE | 2019-03-15 16:20 | NUR ---
DR. HERNANDEZ INFORMED OF LIMITED URINE OUTPUT. NO ORDERS RECEIVED AT THIS TIME.
--- NOTE | 2019-03-15 16:56 | NUR ---
PT AFEBRILE. NO SIGNS OF PAIN NOTED AT THIS TIME. PT WAS AGITATED, ANXIOUS, BUT ABLE TO FOLLOW SOME SIMPLE COMMANDS. DOSE OF GEODON INCREASED PER DR. HERNANDEZ. PT NOW RESTING QUIETLY. MINIMAL AMOUNT OF URINE NOTED. DR. HERNANDEZ NOTIFIED. NO OTHER ACUTE CHANGES TO NOTE AT THIS TIME. WILL CONTINUE TO MONITOR.
--- NOTE | 2019-03-15 18:11 | NUR ---
SHIFT SUMMARY PT VENTILATED AND ON SEDATION. PT AFEBRILE. NO SIGNS OF PAIN OR DISCOMFORT AT THIS TIME. PT ANXIOUS AT TIMES,FOLLOWING SOME SIMPLE COMMANDS. VSS. PT REMAINED ON SAME VENT SETTINGS THROUGHOUT SHIFT. MODERATE AMOUNT OF THICK, PAULA SPUTUM BEING SUCTIONED FROM ETT. PT PLACED ON SEDATION VACATION, BUT BECAME ANXIOUS/AGITATED. DR HERNANDEZ NOTIFIED. DR HERNANDEZ INCREASED GEODON TO 40 MG BID. WILL ATTEMPT SEDATION VACATION AGAIN TOMORROW. OG IN PLACE SET TO LIS. NO BM THIS SHIFT. CARNEY IN PLACE DRAINING DARK GREEN/YELLOW, CLOUDY URINE W/SEDIMENT. MINIMAL URINE OUTPUT NOTED. DR. HERNANDEZ AWARE. PROPOFOL 40 MCG/KG/MIN. D5 LR 75 ML/HR. PRECEDEX 0.5 MCG/KG/HR. PT RECEIVED 40 MEQ POTASSIUM THIS AM FOR LEVEL OF 3.0. NO OTHER ACUTE CHANGES TO NOTE AT THIS TIME. WILL REPORT TO ONCOMING RN.
--- NOTE | 2019-03-15 20:00 | NUR ---
ASSUMPTION OF CARE: Pt intubated and sedated, vent set to AC 14/400/5/25% and O2 at 97%, VSS. Pt responds to painful stimuli and plantar reflexes are present. Peripheral IV x2, patent, intact and infusing propofol, precedex, and D5LR (See flowsheeet). Elder catheter draining yellow urine with some sediment present. Plan for sedation vacation in the morning.
[2019-03-16 03:33] LABS: BASOPHILS ABSOLUTE AUTO 0.02 K/mm3 (0.00-0.23); BASOPHILS PERCENT AUTO 0 % (0-2); EOSINOPHILS ABSOLUTE AUTO 0.39 K/mm3 (0.00-0.68); EOSINOPHILS PERCENT AUTO 6 % (0-6); Hematocrit 30.1 % (33.0-51.0); Hemoglobin 9.4 g/dL (11.5-16.0); IMMATURE GRAN ABSOLUTE AUTO 0.02 K/mm3 (0.00-0.10); IMMATURE GRAN PERCENT AUTO 0 % (0-1); LYMPHOCYTES ABSOLUTE AUTO 2.27 K/mm3 (0.84-5.20); LYMPHOCYTES PERCENT AUTO 33 % (21-46); MONOCYTES ABSOLUTE AUTO 0.75 K/mm3 (0.16-1.47); MONOCYTES PERCENT AUTO 11 % (4-13); Mean Corpuscular HGB 29.2 pg (26.0-34.0); Mean Corpuscular HGB Conc 31.2 g/dL (31.5-36.5); Mean Corpuscular Volume 94 fL (80-100); Mean Platelet Volume 9.2 fL (9.1-12.4); NEUTROPHILS ABSOLUTE AUTO 3.54 K/mm3 (1.96-9.15); NEUTROPHILS PERCENT AUTO 51 % (41-73); Platelet Count 288 K/mm3 (150-400); RDW Coefficient Variation 14.8 % (11.7-14.2); RDW Standard Deviation 50.7 fL (35.1-46.3); Red Blood Cell Count 3.22 M/mm3 (3.80-5.20); White Blood Cell Count 6.99 K/mm3 (4.00-11.30)
[2019-03-16 03:48] LABS: Albumin, Blood 1.9 g/dL (3.4-5.0); Anion Gap 6 mmol/L (6-16); Blood Urea Nitrogen 4 mg/dL (8-24); Bun/Creatinine Ratio 8.6 (12.0-20.0); CO2, Blood 25 mmol/L (21-32); Calcium, Blood 7.5 mg/dL (8.5-10.1); Chloride, Blood 116 mmol/L (98-108); Creatinine, Blood 0.46 mg/dL (0.40-1.00); Glomerular Filtration Rate >60 (60-); Glucose, Blood 106 mg/dL (70-99); Phosphorus, Blood 3.3 mg/dL (2.5-4.9); Sodium, Blood 147 mmol/L (136-145)
--- NOTE | 2019-03-16 04:47 | NUR ---
SBT- LATE ENTRY- COMPUTER WENT DOWN IN THE MIDDLE OF WEANING DOCUMENTATION PT LASTED ABOUT 20 MIN ON WEAN ON PS 7/5 FI02 25%, SATS 98-100, VT'S WERE ALL OVER THE PLACE [id number], RR 25-45, PT VERY ANXIOUS AND HAVING COUGHING FITS T/O TRIAL. PT FAILED WEAN
--- NOTE | 2019-03-16 06:07 | NUR ---
SHIFT SUMMARY: Pt remains intubated and sedated, vent set to AC 14/400/5/25%, VSS. Pt responds to painful stimuli, plantar reflexes present. Peripheral IV x2 patent and intact. Elder catheter in place and draining green tinged urine. Spontaneous breathing trial and sedation vacation performed this morning, vital sings remained stable throughout sedation vacation. Pt able to follow commands, and communicate with pen and paper, but was agitated and anxious through sedation vacation, grimacing, pulling at restraints, and excessively coughing.
--- NOTE | 2019-03-16 08:38 | NUR ---
INITIAL ASSESSMENT PT INTUBATED AND ON SEDATION. PT AFEBRILE. PT SHOWS SOME AGITATION DURING NURSING CARE; LOCALIZING TO ORAL CARE. NO SIGNS OF PAIN OR DISCOMFORT AT THIS TIME. CLEAR IN THE UPPER LOBES, DIMINISHED IN THE LOWERS. SATTING 90% OR GREATER ON CURRENT VENT SETTINGS: A/C 14, TV 400, PEEP 5, 25% FIO2. SCANT THIN CLEAR SECRETIONS SUCTIONED FROM ETT. NRS. HR 70'S. BP STABLE. HYPOACTIVE BS NOTED T/O. OG SET TO LIS WITH GREEN DRAINAGE. CARNEY DRAINING GREEN URINE WITH SEDIMENT. SCABS, SCRAPES, AND BRUISES NOTED THROUGHOUT. D5 LR 75ML/HR. PROPOFOL 40 MCG/KG/MIN. PRECEDEX 0.5 MCG/KG/HR. NO OTHER ACUTE CHANGES TO NOTE AT THIS TIME. BED LOW, CALL LIGHT IN REACH. WILL CONTINUE TO MONITOR.
--- NOTE | 2019-03-16 11:49 | NUR ---
PT EXTUBATED AT 1101. PT CALM, COOPERATIVE, BUT IRRITATED. PT STATES SHE WAS "WALKING IN UNCLE'S SPIRIT" WHEN FOUND BY EMS. PT COOPERATIVE UNTIL ANGERED, RESULTS IN CUSSING AND PT FLIPPING STAFF OFF. PATIENT ORIENTED TO SELF, PLACE, FOLLOWING DIRECTIONS. PATIENT STATES THAT IT IS "January,". SATTING 90% OR GREATER ON 2L NC. HARSH, HACKING, PRODUCTIVE COUGH WITH COPIOUS THICK CLEAR SECRETIONS SUCTIONED. NSR, HR 70S. BP STABLE. OG REMOVED. HYPOACTIVE BS NOTED T/O. CARNEY DRAINING MINIMAL AMOUNT OF GREEN URINE WITH SOME SEDIMENT. REPOSITIONS SELF IN BED. BED ALARM ON. NO CHANGES IN SKIN NOTED. D5 LR 75 ML/HR. PRECEDEX 0.7 MCG/KG/HR. NO OTHER ACUTE CHANGES TO NOTE AT THIS TIME. BED LOW, CALL LIGHT IN REACH. WILL CONTINUE TO MONITOR.
--- NOTE | 2019-03-16 13:42 | NUR ---
PATIENT CONVINCED THAT SHE HAS PLASTIC IN HER THROAT. PATIENT ASSURED BY NURSE THAT SHE DOES NOT AND THAT HER THROAT WILL FEEL SORE FOR A WHILE SHE JUST HAD BREATHING TUBE REMOVED SHORT TIME AGO. PATIENT BECOMES ANGRY AND STATES "IF I FIND OUT I HAVE PLASTIC IN MY THROAT THEN I WILL COME BACK AND FUCKING KILL ALL OF YOU! AND SHOOT ALL OF YOU IN THE FUCKING HEAD". BEDSIDE SWALLOW EVAL PERFORMED. PATIENT ABLE TO SWALLOW FULL LIQUID DIET AT THIS TIME. WILL INCREASE DIET TOLERATED. WILL CONTINUE TO MONITOR.
--- NOTE | 2019-03-16 16:40 | NUR ---
PT HAS NO SIGNS OF PAIN AT THIS TIME. PT AFEBRILE. PT CONTINUES TO BE LABILE. PT CAN BECOME IRRITATED, ANGRY AND THREATENING FROM CALM AND COOPERATIVE INSTANTLY. PT IS WHISPERING AND TALKING TO SELF. PT SATTING 90% OR GREATER ON RA. VSS. PT HAD SMALL BROWN LIQUID STOOL THIS SHIFT. URINE OUTPUT IS ADEQUATE. NO CHANGES IN SKIN TO NOTE AT THIS TIME. BED LOW, CALL LIGHT IN REACH. WILL CONTINUE TO MONITOR.
--- NOTE | 2019-03-16 17:58 | NUR ---
PT ASKED FOR FOOD. PT WAS OFFERED A PIECE OF CHEESE. PT BECAME VERY ANGRY, AND STATED SHE DOES NOT LIKE CHEESE. PT ASKED WHAT SHE WOULD LIKE INSTEAD OF CHEESE. PT STATED SHE WANTED GREENLANDIC FRIES. PT INFORMED THERE ARE NO GREENLANDIC FRIES AT THIS TIME. PT BECAME VERY ANGERED, CLENCHING TEETH, AND LOUDLY GROWLING AT RN'S. PT INFORMED THAT THIS WAS NOT APPROPRIATE BEHAVIOR AND WOULD NOT BE TOLERATED. PT ENDED UP ASKING FOR CHEESE. PT GIVEN CHEESE. WILL CONTINUE TO MONITOR.
--- NOTE | 2019-03-16 18:19 | NUR ---
SHIFT SUMMARY PT WAS INTUBATED AND ON SEDATION AT BEGINNING OF SHIFT. PT EXTUBATED AT 1101. PT REMAINS VERY LABILE; CALM AND COOPERATIVE AND THEN BECOMING THREATENING AND AGITATED. PT PLACED ON 2 MD HOLD. PT GIVEN POTASSIUM FOR LOW LEVEL OF 3.0. T-MAX OF 99.3 BUT IS NOW AFEBRILE. PT HAS HARSH, HACKING, AND PRODUCTIVE COUGH WITH COPIOUS AMOUNTS OF CLEAR WHITE ORAL SECRETIONS. PT TITRATED FROM 2L NC TO RA AND IS SATTING 90% OR GREATER. NSR. VSS. OG REMOVED WITH EXTUBATION. PT HAD SMALL LIQUID BROWN BM THIS SHIFT. CARNEY DRAINING GREEN/YELLOW URINE WITH SOME SEDIMENT. ADEQUATE URINE OUTPUT THIS SHIFT. NO CHANGES TO NOTE IN SKIN. D5 LR 75 ML/HR. PRECEDEX 0.7 MCG/KG/HR.
--- NOTE | 2019-03-16 23:03 | NUR ---
ASSUMPTION OF CARE: Assumed care of pt at 1900. Pt awake, alert and oriented, sitting in bed watching television. Pt denies pain or discomfort VSS, temporal temp 101.6, re-evaluated with oral thermometer which showed temp of 99.7. Pt is labile, cooperative at times. Quickly becomes agitated/angry, makes threatening statements to staff stating "If I wasn't in this bed I would kick your ass". While in room pt became uncooperative, spitting on floor and yelling at staff. Pt instructed that spitting and yelling are unacceptable, emesis bag given for spitting, oral suctioning available and pt educated on use. Bed alarm active and call light within reach.
[2019-03-17 03:28] LABS: BASOPHILS ABSOLUTE AUTO 0.01 K/mm3 (0.00-0.23); BASOPHILS PERCENT AUTO 0 % (0-2); EOSINOPHILS ABSOLUTE AUTO 0.44 K/mm3 (0.00-0.68); EOSINOPHILS PERCENT AUTO 6 % (0-6); Hemoglobin 10.5 g/dL (11.5-16.0); IMMATURE GRAN ABSOLUTE AUTO 0.02 K/mm3 (0.00-0.10); IMMATURE GRAN PERCENT AUTO 0 % (0-1); LYMPHOCYTES ABSOLUTE AUTO 2.38 K/mm3 (0.84-5.20); LYMPHOCYTES PERCENT AUTO 31 % (21-46); MONOCYTES ABSOLUTE AUTO 0.77 K/mm3 (0.16-1.47); MONOCYTES PERCENT AUTO 10 % (4-13); Mean Corpuscular HGB 29.4 pg (26.0-34.0); Mean Corpuscular HGB Conc 30.9 g/dL (31.5-36.5); Mean Corpuscular Volume 95 fL (80-100); Mean Platelet Volume 9.4 fL (9.1-12.4); NEUTROPHILS ABSOLUTE AUTO 4.07 K/mm3 (1.96-9.15); NEUTROPHILS PERCENT AUTO 53 % (41-73); Platelet Count 343 K/mm3 (150-400); RDW Coefficient Variation 14.6 % (11.7-14.2); RDW Standard Deviation 51.5 fL (35.1-46.3); Red Blood Cell Count 3.57 M/mm3 (3.80-5.20); White Blood Cell Count 7.69 K/mm3 (4.00-11.30)
[2019-03-17 03:47] LABS: Albumin, Blood 2.1 g/dL (3.4-5.0); Anion Gap 4 mmol/L (6-16); Blood Urea Nitrogen 2 mg/dL (8-24); Bun/Creatinine Ratio 3.9 (12.0-20.0); CO2, Blood 26 mmol/L (21-32); Calcium, Blood 8.2 mg/dL (8.5-10.1); Chloride, Blood 114 mmol/L (98-108); Creatinine, Blood 0.52 mg/dL (0.40-1.00); Glomerular Filtration Rate >60 (60-); Glucose, Blood 112 mg/dL (70-99); Phosphorus, Blood 2.9 mg/dL (2.5-4.9); Potassium, Blood 3.7 mmol/L (3.5-5.5); Sodium, Blood 144 mmol/L (136-145)
--- NOTE | 2019-03-17 06:45 | NUR ---
SHIFT SUMMARY: Slept well throughout majority of shift. No significant change in behavior. Continues to be cooperative at times and agitated and making threatening statements. Large urine output this shift totaling 3900 mL. VSS throughout night, Tmax 101.0 per oral probe. PRN Tylenol provided, pt declined temperature reassessment.
--- NOTE | 2019-03-17 07:15 | NUR ---
AM ASSESSMENT: PT RESTS/SLEEPS WHEN UNDISTURBED. PT AWAKENS EASILY TO VERBAL STIMULI. FOLLOWS SIMPLE COMMANDS. PLEASANT WITH THIS RN, HOWEVER, CURSED AT NOC SHIFT RN, STATING, "GET THE F OUT OF HERE, YOU KNOW I DON'T LIKE YOU." NO C/O PAIN. NO SUICIDAL IDEATION THIS AM. WILL ATTEMPT A TELE PSYCH CONSULT TODAY, IF PT IS ABLE TO PARTICIPATE. PT WILL FOLLOW SIMPLE COMMANDS. PT REMAINS IN CONTACT ISOLATION. PT ALSO REMAINS ON 2 MD HOLD AT THIS TIME WITH SUICIDE PRECAUTIONS. LUNGS ARE DIMINISHED IN THE BILATERAL BASES. PT HAS FREQUENT, PRODUCTIVE COUGH. PT MAINLY SWALLOWS SPUTUM. HR REGULAR, SR-80-90'S RANGE. PT HAS REMAINING DEPENDENT EDEMA IN THE UE/LE'S BILATERALLY. D5LR @ 75ML/HR PER PIV IN LT AC. PT DRAINING CLEAR, YELLOW URINE TO GRAVITY. WILL STARTING BLADDER TRAINING WITH PT AND D/C CARNEY TODAY. NO BM YET. PT HAS EXTENSIVE SCABS/ECCHYMOSIS PRESENT TO THE LE'S/ABD. ABD SOFT/ROUND/NON-TENDER TO PALPATION. BT'S HYPOACTIVE X4 QAUDS, HOWEVER, PT HAS A GOOD APPETITE.
--- NOTE | 2019-03-17 07:25 | NUR ---
DR BURDICK IN TO ASSESS PT. UPATED WITH PT'S CURRENT STATUS. DISCUSSED DC'ING IVF'S PT IS DRINKING/EATING WELL. DISCUSSED TELE-PYSCH TODAY DR LAMBERT WILL NOT BE AVAILABLE FOR CONSULT UNTIL TOMORROW. SEE NEW ORDERS.
--- NOTE | 2019-03-17 09:07 | NUR ---
IV IN LT AC D/C'D R/T INFILTRATION. CATHETER INTACT. LT FA/UPPER ARM SWOLLEN WITH MIN SURROUNDING ERYTHEMA. SITE IS SOMEWHAT TENDER FOR PATIENT R/T INFILTRATION. ATTEMPTED 1 PIV WITHOUT SUCCESS, PT REFUSES ANY MORE ATTEMPTS AT THIS TIME.
--- NOTE | 2019-03-17 10:09 | NUR ---
SETTING UP TELE-PYSCH CONSULT FOR PT. PT HAS TELE-PYSCH APPT FOR 1300 TODAY.
--- NOTE | 2019-03-17 12:24 | NUR ---
PT UPDATE: PT COMPLETED TELE-AMINAH CONSULT. SPOKE WITH AMINAH BOYCE WHO HAD LEFT A MESSAGE WITH DR BURDICK WITH RECOMMENDATIONS. WILL CALL DR BURDICK WITH TELE AMINAH REPORT.
[2019-03-17] MEDS ORDERED: CEPH500 PO (13:15)
--- NOTE | 2019-03-17 13:30 | NUR ---
DISCHARGE INSTRUCTIONS: PRESCRIPTION FOR KEFLEX CALLED INTO [facility] ON [address] PER PT. WRITTEN/VERBAL DISCHARGE INSTRUCTIONS GIVEN TO PT. PT REPORTS SHE WANTS TO AMBULATE OFF SITE TO HER HOMELESS CAMP WHERE HER IS.
--- NOTE | 2019-03-17 13:35 | NUR ---
PT DISCHARGED: PT AMBULATED OFF UNIT TO BE DISCHARGED BY THIS RN. ALL PT BELONGINGS SENT WITH PT.
== END 2019-03-17 13:35 | disposition home or self-care (01) | DRG 917 ==
LOC: ER 02:34 → ICUW 05:16 → ICUE 05:16
PROVIDERS: Emergency Medicine; Internal Medicine; Internal Medicine Critical Care Medicine; ADMIT Hospitalist
PROC: 0BH17EZ Insertion of Endotracheal Airway into Trachea, Via Natural or Artificial Opening (ICD-10-PCS; principal; 2019-03-13)
PROC: 5A1945Z Respiratory Ventilation, 24-96 Consecutive Hours (ICD-10-PCS; 2019-03-13)
DX: T43.622A Poisoning by amphetamines, intentional self-harm, initial encounter (principal); J96.01 Acute respiratory failure with hypoxia; J14 Pneumonia due to Hemophilus influenzae; J15.4 Pneumonia due to other streptococci; G92 Toxic encephalopathy; J69.0 Pneumonitis due to inhalation of food and vomit; F31.5 Bipolar disorder, current episode depressed, severe, with psychotic features; F29 Unspecified psychosis not due to a substance or known physiological condition; E87.6 Hypokalemia
CPT/HCPCS: 31500; 31720; 36415; 36600; 36680; 51702; 70450; 71045; 80048; 80053; 80069; 81001; 81025; 82550; 82553; 82803; 82947; 83605; 83735; 84100; 84145; 84443; 85025; 87070; 87077; 87081; 87086; 87185; 87186; 93005; 93010; 94002; 94003; 94640; 97162; 99291-25; 99292; C9113; G0480; J0330; J0696; J1650; J2250; J2704; J3010; J3480; J3486; J7030; J7042; J7120

== ENCOUNTER 2019-05-19 19:10 | Observation (INO) | payer MEDICARE ==
[~2019-05-19] VITALS: Ht 167.6 cm; Wt 72.6 kg
[2019-05-19 21:00] LABS: BASOPHILS ABSOLUTE AUTO 0.03 K/mm3 (0.00-0.23); BASOPHILS PERCENT AUTO 0 % (0-2); EOSINOPHILS ABSOLUTE AUTO 0.05 K/mm3 (0.00-0.68); EOSINOPHILS PERCENT AUTO 0 % (0-6); Hematocrit 36.2 % (33.0-51.0); Hemoglobin 11.8 g/dL (11.5-16.0); IMMATURE GRAN ABSOLUTE AUTO 0.03 K/mm3 (0.00-0.10); IMMATURE GRAN PERCENT AUTO 0 % (0-1); LYMPHOCYTES ABSOLUTE AUTO 2.84 K/mm3 (0.84-5.20); LYMPHOCYTES PERCENT AUTO 21 % (21-46); MONOCYTES ABSOLUTE AUTO 1.35 K/mm3 (0.16-1.47); MONOCYTES PERCENT AUTO 10 % (4-13); Mean Corpuscular HGB 30.8 pg (26.0-34.0); Mean Corpuscular HGB Conc 32.6 g/dL (31.5-36.5); Mean Corpuscular Volume 95 fL (80-100); Mean Platelet Volume 9.3 fL (9.1-12.4); NEUTROPHILS ABSOLUTE AUTO 9.02 K/mm3 (1.96-9.15); NEUTROPHILS PERCENT AUTO 68 % (41-73); Platelet Count 337 K/mm3 (150-400); RDW Coefficient Variation 14.5 % (11.7-14.2); RDW Standard Deviation 50.1 fL (35.1-46.3); Red Blood Cell Count 3.83 M/mm3 (3.80-5.20); White Blood Cell Count 13.32 K/mm3 (4.00-11.30)
[2019-05-19 21:02] LABS: Base Excess Venous -1.6 mmol/L; Bicarbonate Venous 23.3 mmol/L (24.0-30.0); PO2 Venous 168 mmHg (38-42)
[2019-05-19 21:19] LABS: Alanine Aminotransfer (ALT/SGP 14 U/L (12-78); Albumin, Blood 3.6 g/dL (3.4-5.0); Albumin/Globulin Ratio 0.9 (0.8-1.8); Alk Phos 82 U/L (50-136); Anion Gap 10 mmol/L (6-16); Aspartate Aminotrans (AST/SGOT 12 U/L (12-37); Bilirubin, Total 0.4 mg/dL (0.1-1.0); Blood Urea Nitrogen 21 mg/dL (8-24); Bun/Creatinine Ratio 30.9 (12.0-20.0); CO2, Blood 24 mmol/L (21-32); Calcium, Blood 8.7 mg/dL (8.5-10.1); Chloride, Blood 113 mmol/L (98-108); Creatinine, Blood 0.68 mg/dL (0.40-1.00); Glomerular Filtration Rate >60 (60-); Glucose, Blood 78 mg/dL (70-99); Potassium, Blood 3.1 mmol/L (3.5-5.5); Sodium, Blood 147 mmol/L (136-145); Total Protein, Blood 7.6 g/dL (6.4-8.2)
== END 2019-05-20 04:48 | disposition home or self-care (01) ==
LOC: ER 19:10 → EOR 19:11 → ER 05-20 00:25 → EOR 05-20 00:25
PROVIDERS: ADMIT Emergency Medicine
DX: F25.9 Schizoaffective disorder, unspecified (principal); F19.10 Other psychoactive substance abuse, uncomplicated; F17.210 Nicotine dependence, cigarettes, uncomplicated; Z59.0 Homelessness; Z88.8 Allergy status to other drugs, medicaments and biological substances
CPT/HCPCS: 36415; 71045; 80053; 82803; 85025; 96361; 96372-59; 96374; 99285-25; G0378; J2060; J3486; J7120

== ENCOUNTER 2019-06-12 22:09 | Emergency (ER) | payer MEDICARE ==
[~2019-06-12] VITALS: Ht 170.2 cm; Wt 74.8 kg
== END 2019-06-12 23:20 | disposition home or self-care (01) ==
LOC: ER 22:09
DX: F15.10 Other stimulant abuse, uncomplicated (principal); I10 Essential (primary) hypertension; F90.9 Attention-deficit hyperactivity disorder, unspecified type; F17.210 Nicotine dependence, cigarettes, uncomplicated
CPT/HCPCS: 99283

== ENCOUNTER 2020-04-07 11:55 | Observation (INO) | payer MEDICARE, OTHER ==
[~2020-04-07] VITALS: Ht 167.6 cm; Wt 90.7 kg
[2020-04-07 13:39] LABS: BASOPHILS ABSOLUTE AUTO 0.02 K/mm3 (0.00-0.23); BASOPHILS PERCENT AUTO 0 % (0-2); EOSINOPHILS ABSOLUTE AUTO 0.09 K/mm3 (0.00-0.68); EOSINOPHILS PERCENT AUTO 1 % (0-6); Hematocrit 39.3 % (33.0-51.0); Hemoglobin 12.8 g/dL (11.5-16.0); IMMATURE GRAN ABSOLUTE AUTO 0.02 K/mm3 (0.00-0.10); IMMATURE GRAN PERCENT AUTO 0 % (0-1); LYMPHOCYTES ABSOLUTE AUTO 2.64 K/mm3 (0.84-5.20); LYMPHOCYTES PERCENT AUTO 31 % (21-46); MONOCYTES ABSOLUTE AUTO 0.87 K/mm3 (0.16-1.47); MONOCYTES PERCENT AUTO 10 % (4-13); Mean Corpuscular HGB 31.2 pg (26.0-34.0); Mean Corpuscular HGB Conc 32.6 g/dL (31.5-36.5); Mean Corpuscular Volume 96 fL (80-100); Mean Platelet Volume 8.9 fL (9.1-12.4); NEUTROPHILS ABSOLUTE AUTO 4.96 K/mm3 (1.96-9.15); NEUTROPHILS PERCENT AUTO 58 % (41-73); Platelet Count 312 K/mm3 (150-400); RDW Coefficient Variation 13.3 % (11.7-14.2); RDW Standard Deviation 47.8 fL (35.1-46.3)
[2020-04-07 13:57] LABS: Ethanol (Alcohol), Blood, Med <3 mg/dL; Free Thyroxine 1.23 ng/dL (0.70-1.60); Salicylate <1.7 mg/dL (2.8-20.0)
[2020-04-07 14:04] LABS: Acetaminophen, Random <2.0 ug/mL (10.0-30.0); Alanine Aminotransfer (ALT/SGP 27 U/L (12-78); Albumin, Blood 3.6 g/dL (3.4-5.0); Albumin/Globulin Ratio 0.9 (0.8-1.8); Alk Phos 88 U/L (50-136); Anion Gap 5 mmol/L (6-16); Aspartate Aminotrans (AST/SGOT 48 U/L (12-37); Bilirubin, Total 0.8 mg/dL (0.1-1.0); Blood Urea Nitrogen 17 mg/dL (8-24); Bun/Creatinine Ratio 23.4 (12.0-20.0); CO2, Blood 22 mmol/L (21-32); Calcium, Blood 8.6 mg/dL (8.5-10.1); Chloride, Blood 114 mmol/L (98-108); Creatinine, Blood 0.73 mg/dL (0.40-1.00); Glomerular Filtration Rate >60 (60-); Glucose, Blood 74 mg/dL (70-99); Potassium, Blood 3.8 mmol/L (3.5-5.5); Sodium, Blood 141 mmol/L (136-145); Total Protein, Blood 7.6 g/dL (6.4-8.2)
[2020-04-07 14:06] LABS: Creatine Kinase MB Index 1.1 (0.0-4.0)
[2020-04-07 15:42] LABS: Source, Urine Clean Catch
[2020-04-07] MEDS ORDERED: INVEGA SUS234 MG/1.1 IM (15:42)
[2020-04-07 15:56] LABS: Appearance, Urine Clear (Clear); Bilirubin, Urine Neg (Neg); Color, Urine Yellow (P-Yellow); Glucose Qualitative, Urine Neg (Neg); Ketones, Urine 2+ (Neg); Leukocyte Esterase, Urine Neg (Neg); Nitrite, Urine Neg (Neg); Protein, Urine 1+ (Neg); Urobilinogen, Urine NORM (Normal)
[2020-04-07 15:57] LABS: Blood, Urine Neg (Neg)
[2020-04-07 16:04] LABS: U Amphetamine Screen DETECTED; U Barbituate Screen Not Detected; U Benzodiazapine Screen DETECTED; U Buprenorphine Screen Not Detected; U Cannabinoids Screen Not Detected; U Cocaine Screen Not Detected; U Methadone Screen Not Detected; U Methamphetamine Screen DETECTED; U Opiates Screen Not Detected; U Oxycodone Screen Not Detected; U Phencyclidine Screen Not Detected; U Propoxyphene Screen Not Detected
== END 2020-04-08 14:35 | disposition home or self-care (01) ==
LOC: ER 11:55 → EOR 11:56
PROVIDERS: ADMIT Emergency Medicine
DX: F15.959 Other stimulant use, unspecified with stimulant-induced psychotic disorder, unspecified (principal); F90.9 Attention-deficit hyperactivity disorder, unspecified type; Z79.899 Other long term (current) drug therapy; Z88.8 Allergy status to other drugs, medicaments and biological substances
CPT/HCPCS: 36415; 80053; 81025; 82550; 82553; 84439; 84443; 85025; 96372; 99285-25; G0378; G0480; J1200; P9612

== ENCOUNTER 2021-01-18 19:41 | Emergency (ER) | payer MEDICARE, OTHER ==
[~2021-01-18] VITALS: Ht 165.1 cm; Wt 70.3 kg
[~2021-01-18 19:41] MED LIST changes: +INVEGA SUS234 MG/1.1 IM
== END 2021-01-18 23:47 | disposition left against medical advice (07) ==
LOC: ER 19:41
DX: Z00.00 Encounter for general adult medical examination without abnormal findings (principal); Z53.21 Procedure and treatment not carried out due to patient leaving prior to being seen by health care provider
CPT/HCPCS: 99282